=== PATIENT | female | born 1995 | race African-American/Black ===

== ENCOUNTER 2019-04-07 00:29 | Emergency (ER) | payer OTHER ==
[2019-04-07] MEDS: IBUPROFEN 800 MG TAB PO (02:47)
[2019-04-07] MEDS: DIPHTH/TET/ACEL PERTUSS (ADULT) 0.5 ML VIAL IM* (02:48)
== END 2019-04-07 03:42 | disposition home or self-care (01) ==
LOC: FTE 00:29
DX: S91.331A Puncture wound without foreign body, right foot, initial encounter (principal); W27.3XXA Contact with needle (sewing), initial encounter; Y92.9 Unspecified place or not applicable; Z23 Encounter for immunization
CPT/HCPCS: 81025; 90471; 90715; 99283-25